=== PATIENT | female | born 1980 | race Two or more races ===

== ENCOUNTER 2018-01-17 11:29 | Outpatient (CLI) | payer OTHER | END 2018-01-17 12:42 | disposition home or self-care (01) | LOC: SONOGRAMA 11:29 | DX: N63.11 Unspecified lump in the right breast, upper outer quadrant (principal) ==

== ENCOUNTER 2019-12-18 08:25 | Outpatient (CLI) | payer OTHER | END 2019-12-18 08:35 | disposition home or self-care (01) | LOC: SONOGRAMA 08:25 | DX: N60.11 Diffuse cystic mastopathy of right breast (principal); N60.12 Diffuse cystic mastopathy of left breast; N63.11 Unspecified lump in the right breast, upper outer quadrant ==

== ENCOUNTER 2019-12-21 11:00 | Outpatient (CLI) | payer OTHER | END 2019-12-21 11:05 | disposition home or self-care (01) | LOC: SONOGRAMA 11:00 | DX: E04.1 Nontoxic single thyroid nodule (principal) ==